=== PATIENT | female | born 1975 | race Caucasian/White ===

== ENCOUNTER 2020-11-19 17:09 | Emergency (ER) | payer BC, OTHER ==
[2020-11-19 18:57] LABS: BUN/CREATININE RATIO 17 (0-10)
[2020-11-19 19:01] LABS: HEMOGLOBIN 12.5 gm/dl (12.3-15.3); RED BLOOD COUNT 3.87 M/UL (4.00-5.10); WHITE BLOOD COUNT 7.2 K/UL (4.5-11.0)
[2020-11-19] MEDS ORDERED: MEDROL DOSEPAK 24 MG PO (19:37)
== END 2020-11-19 20:05 | disposition home or self-care (01) ==
LOC: ER1 17:09
PROVIDERS: Physician Assistant
DX: R20.2 Paresthesia of skin (principal); R51.9 Headache, unspecified; Z23 Encounter for immunization
CPT/HCPCS: 70450; 80053; 84439; 84443; 85025; 85652; 86140; 93005; 96372; 99284; J1885